=== PATIENT | male | born 1980 | race African-American/Black ===

== ENCOUNTER 2019-01-26 10:56 | Emergency (ER) | payer MEDICAID ==
[~2019-01-26] VITALS: Ht 185.4 cm; Wt 90.0 kg
[2019-01-26] MEDS ORDERED: KETOROLAC 30MG/ML VIAL IV STA (11:45)
[2019-01-26] MEDS ORDERED: SODIUM CHLORIDE 0.9% 1,000 ML IV ONE (11:45)
[2019-01-26] MEDS ORDERED: ACETAMINOPHEN 325MG TABLET PO STA (11:45)
[2019-01-26 11:54] LABS: HEMATOCRIT. 37.8 % (42.0-52.0); HEMOGLOBIN. 12.4 g/dL (14.0-18.0); MEAN CORPUSCULAR HEMOGLOBIN 29.1 pg (28.0-32.0); MEAN CORPUSCULAR VOLUME 88.6 fL (80.0-94.0); MEAN PLATELET VOLUME 8.4 fl (7.4-10.4); PLATELET 233 x1000/uL (130-400); RED BLOOD CELL COUNT 4.26 mill/uL (4.7-6.1); RED CELL DISTRIBUTION WIDTH 13.9 % (11.6-14.6)
[2019-01-26 12:01] LABS: CHLORIDE 106 mEq/L (98-107)
[2019-01-26 12:11] LABS: INR 1.1
[2019-01-26] MEDS ORDERED: ALBUTEROL (0.083%) 2.5MG/3ML NEB HHN STA (12:13)
[2019-01-26] MEDS ORDERED: IPRATROPIUM BROMIDE (0.02%) 0.5MG/2.5ML NEB HHN STA (12:13)
[2019-01-26 12:21] LABS: PLATELET ESTIMATE NORMAL
[2019-01-26] MEDS ORDERED: SODIUM CHLORIDE 0.9% 1000ML BAG (SEPSIS BOLUS) IV NR (13:00)
[2019-01-26] MEDS ORDERED: PIPERACILLIN/TAZ 3.375G PREMIX 50 ML IV NR (13:07)
[2019-01-26 14:11] VITALS: BP 144/78
== END 2019-01-26 14:29 | disposition left against medical advice (07) ==
LOC: ER 10:56 → CANBEDREQ 16:48
DX: A41.9 Sepsis, unspecified organism (principal); J45.909 Unspecified asthma, uncomplicated
CPT/HCPCS: 36415; 71045; 80053; 83605; 84145; 84484; 85025; 85610; 87040; 87804; 93005; 94640; 96365; 96375; 99291; J1885; J2543; J7030; J7611